=== PATIENT | male | born 1965 | race Caucasian/White ===

== ENCOUNTER 2022-02-10 07:19 | Day surgery (SDC) | payer BC ==
[2022-02-08 16:04] VITALS: BMI 27.1
[~2022-02-10 07:19] MED LIST: LACTATED RINGERS 1,000 ML IV SCH; LIDOCAINE 1% (10MG/ML) FOR IV START INTRADERMA PRN
[2022-02-10 07:43] VITALS: TEMP 96.9
[2022-02-10] MEDS ORDERED: PROPOFOL 10 MG/ML 20 ML VIAL IV ONE (08:14)
--- NOTE | 2022-02-10 08:41 | P.PCN ---
Date of Procedure: 02/10/22 Procedure(s) Performed: BRIEF HISTORY: Patient is a 56-year-old pleasant white male scheduled for an elective colonoscopy as a part of screening for colon cancer. He has strong family history of colon cancer diagnosed in mother at age 50, brother at age 48 another brother at age 60. His last colonoscopy was 4 years ago at [facility]. PROCEDURE PERFORMED: Colonoscopy. With biopsy and tattooing with Annette ink PREOPERATIVE DIAGNOSIS: Screening for colon cancer and strong family history of colon cancer. IV sedation per Anesthesia. PROCEDURE: After informed consent was obtained, the patient, was brought into the endoscopy unit. IV sedation was administered by Anesthesia under continuous monitoring. Digital rectal examination was normal. Initially the Olympus CF-160 flexible video colonoscope was then inserted in the rectum, gradually advanced into the cecum without any difficulty. Careful examination was performed as the scope was gradually being withdrawn. Ileocecal valve and the appendiceal orifice were visualized and appeared normal. Prep was excellent. Mucosa of the cecum, ascending colon, appeared normal. In the proximal transverse colon there was a circumferential ulcerated mass close to the hepatic flexure with luminal narrowing and multiple biopsies were done from this area. Following this tattooing was performed with Annette ink. Rest of the transverse colon, descending colon, sigmoid colon, and rectum appeared normal. Scattered sigmoid diverticulosis seen. Retroflexion was performed in the rectum and no lesions were seen. The patient tolerated the procedure well. IMPRESSION: Circumferential ulcerated mass in the proximal transverse colon close to the hepatic flexure with luminal narrowing status post multiple biopsies followed by tattooing with Annette ink . Scattered left sided diverticulosis RECOMMENDATIONS: Findings of this examination were discussed with the patient as well as his family. He'll be scheduled for CT of abdomen and pelvis early next week and he'll be seen in office in 4-5 days.
[2022-02-10 08:59] VITALS: BP 121/57; PULSE 50; RESP 16
== END 2022-02-10 09:30 | disposition home or self-care (01) ==
LOC: ORWHC2ENDO 07:19
PROVIDERS: ATTEND Internal Medicine Gastroenterology
DX: Z12.11 Encounter for screening for malignant neoplasm of colon (principal); C18.4 Malignant neoplasm of transverse colon; K57.30 Diverticulosis of large intestine without perforation or abscess without bleeding; G47.33 Obstructive sleep apnea (adult) (pediatric); Z80.0 Family history of malignant neoplasm of digestive organs
CPT/HCPCS: 45380; 45381; J2704; 88305

== ENCOUNTER → 2022-02-10 | Outpatient (CLI) | payer BC ==
--- NOTE | 2022-02-10 17:14 | CT ---
EXAMINATION TYPE: CT abdomen pelvis w con DATE OF EXAM: 02/10/2022 COMPARISON: None HISTORY: Mass found outside of colon during colonoscopy CT DLP: 939.7 mGycm Automated exposure control for dose reduction was used. CONTRAST: Performed with IV Contrast, patient injected with 100cc mL of Isovue 300. Images obtained from the diaphragm to the floor the pelvis with oral and IV contrast. Lung bases are clear. No pleural effusion. Heart size is normal. No pericardial effusion. Liver spleen and stomach pancreas gallbladder appear intact. The bile ducts are not dilated. There is no adrenal mass. Kidneys show satisfactory contrast opacification. No hydronephrosis. Ureter s are not dilated. No retroperitoneal adenopathy. Bladder distends smoothly. No inguinal hernia. No f ree fluid in the pelvis. No pelvic mass. There are sigmoid diverticula. No diverticulitis. There is no mesenteric edema. No ascites or free air. No sign of a bowel obstruction. There is some wall thickening of the hepatic flexure of the colon that could be an annular tumor. Thi s measures approximately 4 cm in length and 3.8 cm in diameter. Appendix is lateral and appears normal. The lumbar vertebra have normal alignment. No compression fracture. Bony pelvis is intact. The hip ezequiel ints are intact. Sacroiliac joints are intact. 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 Follow-up is recommended. Sigmoid diverticulosis without diverticulitis.
== END | disposition home or self-care (01) ==
LOC: RADCTMAIN 15:01
PROVIDERS: ATTEND Internal Medicine Gastroenterology
DX: K57.30 Diverticulosis of large intestine without perforation or abscess without bleeding (principal)
CPT/HCPCS: 74177; Q9967 ×2

== ENCOUNTER → 2023-12-25 | Outpatient (CLI) | payer BC ==
--- NOTE | 2024-01-01 22:30 | MR ---
EXAMINATION TYPE: MR shoulder LT wo con DATE OF EXAM: 12/25/2023 COMPARISON: Prior MRI left shoulder August 14, 2015. Outside left shoulder x-rays December 18, 2023 HISTORY: Left shoulder pain chronic. TECHNIQUE: Multiplanar, multisequence imaging of the left shoulder is performed without contrast. FINDINGS: Rotator Cuff: More prominent increased signal in the distal infraspinatus tendon. More prominent retr acted tear involving anterior fibers of the supraspinatus tendon. Heterogeneous subscapularis tendon with surrounding fluid. Rotator cuff muscle bulk is preserved. Acromioclavicular Joint: Slight superior positioning of the inferior margin of the distal clavicle re lative to the acromion is redemonstrated. Mild narrowing and chal-eq-jeynspkd spurring is present. Glenohumeral Joint: Moderate-sized joint effusion. Prominent narrowing is seen. No significant spurri ng. Labrum: Blunted superior labrum with abnormal signal consistent with tear. Biceps Tendon: The long head of biceps is now not identified in normal location within bicipital groo ve. Intracapsular portion to the labral anchor is not clearly seen. Bone marrow signal: No focal abnormal marrow signal is appreciated. Other: No additional significant abnormality is appreciated. IMPRESSION: 1. More prominent retracted tear involving anterior fibers of the supraspinatus tendon. 2. More prominent tendinosis/partial tear infraspinatus and subscapularis tendons. 3. Increasing degenerative changes are present as detailed above. 4. New superior labral tear and tear/dislocation of long head of the biceps tendon. [facility], Workstation: [email or web address], 01/01/2024 10:27 PM
== END | disposition home or self-care (01) ==
LOC: RADMRIMAIN 19:13
PROVIDERS: ATTEND Orthopaedic Surgery
DX: M25.512 Pain in left shoulder

== ENCOUNTER → 2024-02-12 | Outpatient (CLI) | payer BC ==
[2024-02-12 18:49] LABS: Basophils # (A) 0.05 X 10*3/uL (0.00-0.10); Basophils % (A) 0.7 %; Eosinophils # (A) 0.17 X 10*3/uL (0.04-0.35); Eosinophils % (A) 2.2 %; HCT 40.5 % (39.6-50.0); HGB 13.1 g/dL (13.0-17.0); Lymphocytes # (A) 2.04 X 10*3/uL (0.90-5.00); MCH 32.2 pg (27.0-32.0); MCHC 32.3 g/dL (32.0-37.0); MCV 99.5 FL (80.0-97.0); Mean Platelet Volume 10.2 FL (9.5-12.2); Monocytes # (A) 0.87 X 10*3/uL (0.20-1.00); Monocytes % (A) 11.5 %; NRBC Per 100 WBC 0 X 10*3/uL (0.00-0.01); Neutrophils # (A) 4.42 X 10*3/uL (1.80-7.70); Neutrophils % (A) 58.5 %; Platelet Count 186 X 10*3/uL (140-440); RBC 4.07 X 10*6/uL (4.40-5.60); RDW 12.3 % (11.5-14.5); WBC 7.56 X 10*3/uL (4.50-10.00)
[2024-02-12 19:16] LABS: Anion Gap 9.1 mmol/L (4.00-12.00); Carbon Dioxide 26.9 mmol/L (21.6-31.8); Potassium 4.3 mmol/L (3.5-5.5)
== END | disposition home or self-care (01) ==
LOC: LABPAT 15:26
PROVIDERS: ATTEND Orthopaedic Surgery
CPT/HCPCS: 80051; 85025; 93005

== ENCOUNTER 2024-02-27 05:44 | Day surgery (SDC) | payer BC ==
--- NOTE | 2024-02-26 23:26 | HP ---
HISTORY AND PHYSICAL DATE OF SURGERY: 02/27/2024. HISTORY OF PRESENT ILLNESS: Perez Butler is a 58-year-old gentleman seen with progressive left shoulder pain. We discussed options regarding treatment. He elected to proceed with left shoulder arthroscopy. Consent regarding the procedure was obtained. PAST MEDICAL HISTORY: Noncontributory. PAST SURGICAL HISTORY: Right shoulder arthroscopy, right knee arthroscopy. DAILY MEDICATIONS: None. ALLERGIES: None known. SOCIAL HISTORY: Denies current tobacco use. PHYSICAL EVALUATION OF THE LEFT SHOULDER: Flexion is 150 degrees. Abduction is 130 degrees. External rotation is 40 degrees with pain and weakness. He has tenderness along the anterolateral acromion and bicipital groove, tenderness along the rotator cuff insertion site and long head biceps tendon. Impingement is positive at 90 degrees. Cross-body adduction sign is positive. Drop-arm sign is positive. Distal neurovascular exam is intact. IMAGING STUDIES: Left shoulder radiographs revealed a type 3 acromion, acromioclavicular joint osteoarthritis, and cystic changes of the greater tuberosity. MRI of left shoulder revealed a retracted rotator cuff tendon tear, acromioclavicular joint osteoarthritis, labral tear, and biceps dislocation. IMPRESSION: 1. Left shoulder impingement with retracted rotator cuff tear. 2. Left shoulder acromioclavicular joint osteoarthritis. 3. Left shoulder biceps dislocation. 4. Left shoulder labral tear. PLAN: Left shoulder arthroscopy with subacromial decompression, arthroscopic rotator cuff repair with biceps tenodesis, Vincent, and debridement of labral tear. MMODL / IJN: [id number] /
[2024-02-27] MEDS: fentaNYL (PF) 50 MCG/ML 2 ML AMP IVP PRN (06:55)
[2024-02-27] MEDS: MIDAZOLAM 2 MG/2 ML VIAL IV ONE (06:55)
[2024-02-27] MEDS ORDERED: HYDROmorphone 0.5 MG/0.5 ML SYRINGE IVP PRN (07:00)
[2024-02-27] MEDS: DEXAMETHASONE SOD PHOSPHATE 4 MG/ML 1 ML VIAL IV ONE (07:07)
[2024-02-27] MEDS: ONDANSETRON 4 MG/2 ML VIAL IVP ONE (07:07)
--- NOTE | 2024-02-27 07:09 | P.ANPRN ---
Procedure Note - Anesthesia - Nerve Block Performed Left Interscalene Single Time Out Performed: Yes Date of Procedure: 02/27/24 Procedure Start Time: 06:54 Procedure Stop Time: 07:01 Location of Patient: PreOp Indication: Acute Post-Operative Pain, Requested by Surgeon Sedation Type: Sedate with meaningful contact maintained Preparation: Sterile Prep Position: Supine Needle Types: Pajunk Needle Gauge: 21 Ultrasound used to visualize needle placement: Yes Ultrasound used to observe medication spread: Yes Injectate: 0.5% Ropivacaine (see comment for volume) (30 ml + 4 mg De xamethasone) Blood Aspirated: No Pain Paresthesia on Injection Noted: No Resistance on Injection: Normal Image Stored and Saved: Yes Events: Uneventful and Well Tolerated
[2024-02-27] MEDS: LACTATED RINGERS 1,000 ML IV SCH (07:24)
[2024-02-27] MEDS ORDERED: SUCCINYLCHOLINE CHLORIDE 200 MG/10 ML VIAL IV ONE (07:25)
[2024-02-27] MEDS ORDERED: DEXAMETHASONE SOD PHOSPHATE 4 MG/ML 1 ML VIAL ONE (07:25)
[2024-02-27] MEDS ORDERED: PROPOFOL 10 MG/ML 20 ML VIAL IV ONE (07:25)
[2024-02-27] MEDS ORDERED: ROPIVACAINE 5 MG/ML 30 ML VIAL ONE (07:25)
[2024-02-27] MEDS ORDERED: fentaNYL (PF) 50 MCG/ML 2 ML AMP ONE (07:25)
[2024-02-27] MEDS ORDERED: LIDOCAINE 1% INJ 10MG/ML (20 ML MDV) ONE (07:25)
[2024-02-27] MEDS: IV FLUID CONTINUATION 1,000 ML IV ONE ×2 (07:25→10:54)
--- NOTE | 2024-02-27 09:40 | P.OP ---
Date of Procedure: 02/27/24 Preoperative Diagnosis: Left shoulder impingement Postoperative Diagnosis: 1. Left shoulder massive retracted rotator cuff tendon tear 2. Left shoulder impingement 3. Left shoulder acromioclavicular joint osteoarthritis 4. Left shoulder partial long head biceps tendon tear 5. Left shoulder superficial labral tear Procedure(s) Performed: 1. Left shoulder arthroscopic rotator cuff repair 2. Left shoulder arthroscopic subacromial decompression 3. Left shoulder arthroscopic Vincent procedure 4. Left shoulder arthroscopic biceps tenotomy 5. Left shoulder arthroscopic debridement superficial labral tear Implants: 2Arthrex 4.75 swivel lock anchors Anesthesia: GETA, regional (Interscalene block) Surgeon: Roger Burrows Core Winder Machine Operator #1: Delta Del [place] Estimated Blood Loss (ml): 10 Pathology: none sent Condition: stable Disposition: PACU Indications for Procedure: 58-year-old gentleman seen with progressive left shoulder pain. After having treatment options discussed, he elected to proceed with arthroscopy. Operative Findings: See description of procedure Description of Procedure: Patient underwent an interscalene block by department of anesthesia. The patient was then taken to the operative suite. The patient underwent a general anesthetic by the department of anesthesia. The patient was placed into a lateral position and secured. There was appropriate padding of the bony prominence. Left shoulder was then prepped and draped in normal sterile orthopedic fashion. We placed the extremity in 10 pounds of longitudinal traction. A posterior incision was now made for a posterior working portal site. The trocar and cannula were inserted into the glenohumeral joint. Arthroscopy was initiated. Spinal needle was now inserted anteriorly, to ascertain the anterior working portal site. An incision was now made in that area, a trocar was inserted followed by a probe. There was significant partial tearing long head biceps tendon which appeared to be greater than 70% which was also scarred down significantly. There was superficial tearing of the superior labrum. There was very mild chondromalacia of the anterior glenoid area without osteoc hondral tears. I performed arthroscopic biceps tenotomy. I debrided out the superficial labral tear. The residual labrum was stable. Instruments were now removed from glenohumeral joint. Utilizing the posterior working portal site, the trocar and cannula were inserted into the subacromial space. Arthroscopy initiated. I made an incision 2 fingerbreadths lateral to the acromion. I introduced my trocar followed by my ArthroCare ablator. I now began ablating thick subacromial bursal tissue, which exposed the undersurface of the anterior acromion. There was diminished subacromial space. There was a very prominent anterior acromion. A motorized bur was introduced and a subacromial decompression was performed. I also excised some osteophytes off the inferior aspect of the distal clavicle. The AC joint was visualized and noted to be fairly arthritic. The motorized bur was introduced in the anterior portal site and a Vincent procedure was performed without difficulty removing 8 mm of bone off the distal clavicle, decompressing the AC joint nicely. I turned my attention to the rotator cuff. There was a massive retracted tear. The tear measured greater than 5 cm. There was significant deficiency and scarring along the anterior aspect of the distal supraspinatus. At this point I began meticulously releasing the tendon from the anterior to posterior aspect. I was finally able to mobilize it where I was barely able to get over the footprint especially of the anterior half. I abraded the footprint with a motorized bur getting down into petechial bleeding bone. With the assistance of Lennox EMERY past for everted mattress sutures through good bites of rotator cuff tendon. I now punched a hole posteriorly for repairing the posterior half of the distal supraspinatus. I passed 4 suture limbs through the eyelet of an Arthrex 4.75 anchor. I placed the anchor into the prepunch hole. I held in position while Lennox EMERY tensioned all 4 suture limbs and deployed the anchor with good fixation noted. All residual suture limbs were clipped. I now punched a hole anteriorly for repairing the anterior half of the distal supraspinatus. I passed those 4 suture limbs through the eyelet of an Arthrex 4.75 swivel lock anchor. I placed the anchor into the preplanned hole, held in position while Lennox EMERY tensioned all 4 suture limbs and deployed the anchor with good fixation noted. All residual suture limbs were now clipped. We had good compression of the tendon along the entire footprint but obviously the anterior aspect was under quite a bit of tension although I did note a solid repair. Instruments now removed from the portal sites. All portal sites were approximated with nylon suture. Sterile dressings were applied followed by a shoulder immobilizer. Delta EMERY assisted in this complex case. The patient was awakened, transferred to a bed, and taken to recovery in stable condition.
[2024-02-27 09:47] VITALS: TEMP 97.8
[2024-02-27 11:30] VITALS: RESP 14
[2024-02-27 11:49] VITALS: BP 140/87; PULSE 61
== END 2024-02-27 12:23 | disposition home or self-care (01) ==
LOC: OR 05:44
PROVIDERS: ATTEND Orthopaedic Surgery
DX: M75.122 Complete rotator cuff tear or rupture of left shoulder, not specified as traumatic (principal); S46.112A Strain of muscle, fascia and tendon of long head of biceps, left arm, initial encounter; S43.492A Other sprain of left shoulder joint, initial encounter; M19.012 Primary osteoarthritis, left shoulder; M25.812 Other specified joint disorders, left shoulder; M94.212 Chondromalacia, left shoulder; G89.18 Other acute postprocedural pain; E78.5 Hyperlipidemia, unspecified; G47.33 Obstructive sleep apnea (adult) (pediatric); F41.9 Anxiety disorder, unspecified; F32.A Depression, unspecified; Z91.89 Other specified personal risk factors, not elsewhere classified; Z85.038 Personal history of other malignant neoplasm of large intestine; Z90.49 Acquired absence of other specified parts of digestive tract
CPT/HCPCS: 64415; 29827; 29826; 29824; C1713 ×2; J2250; J0330; J1100; J0690; J2405; J2003; J3010; J2795; J2704